=== PATIENT | female | born 1960 | race Caucasian/White ===

== ENCOUNTER 2024-10-16 20:20 | Emergency (ER) | payer OTHER, SELFPAY ==
[2024-10-16 20:27] VITALS: BP 146/96; PULSE 76; RESP 18; TEMP 36.7; O2SAT 99; BMI 36.3
--- NOTE | 2024-10-16 20:49 | ED_ITS ---
HPI - General Adult General Chief complaint: Fall/Minor Trauma Stated complaint: fell and cut face, hurt right arm Time Seen by Provider: 10/16/24 20:47 History of Present Illness HPI narrative: 64-year-old female with a past medical history hyperlipidemia, elevated BMI, abnormal Pap smear, presenting to the ER today for injuries after mechanical trip and fall. Today she was going upper concrete in her driveway. She was carrying some groceries in the grocery bag ripped and then she tripped on something and fell forward. when she tripped and hit her face on the corner and on some gravel next to her driveway and also injured her right arm. She did not lose consciousness. She did not injure her teeth her mouth. She does have scrapes and abrasions on her left face. However her main site of pain is significant discomfort in her right elbow that hurts whenever she tries to flex or straighten it. She does not have any neck pain. No upper or lower back pain. No chest pain or trouble breathing. No hip pain or pelvic pain. She did scrape both her knees but she would not have come to the ER for those scrapes. She does not have a headache. No blurry vision. No nausea or vomiting. She knows that she has scraped her left cheek and broke her glasses when she fell. No injuries to her eyes. She is unsure of her last tetanus (state database and records from [facility] care link show that it has been since 2010 since her last update. Related Data Home Medications ?Medication ?Instructions ?Recorded ?Confirmed No Known Home Medications 10/16/24 10/16/24 Allergies Allergy/AdvReac Type Severity Reaction Status Date / Time erythromycin base Allergy Mild Hives Verified 10/16/24 20:29 [facility] Social History Smoking Status: Never smoker How often do you have a drink containing alcohol: never AUDIT-C Alcohol total score: 0 Non-prescribed substance use: denies use Exam Narrative: Exam Narrative: Constitutional: Appears well-developed and well-nourished. Alert. Conversant. Non toxic. HENT: Head: No depressed skull fracture, Raccoon Eyes, Perez's sign, or hemotympanum. Face normal. TMs normal. Nose: Nose normal. Mouth/Throat: Oral mucosa is clear and moist. no trismus. Pharynx normal. Tonsils symmetric. No tonsillar enlargement, erythema, or exudate. Eyes: Conjunctivae normal. EOM normal. Pupils equal, round, and reactive to light. No scleral icterus. The patient has 3 vertical linear scratches on her left cheek over the lateral zygomatic arch. Two of them are very superficial, not binge threatening to the dermis. The other 1 barely penetrates through the dermis but does not create any gapping in the skin. I do not think these lacerations would benefit from primary closure with sutures. Dressings applied and antibiotic ointment applied. Neck: Normal range of motion. Neck supple. No tracheal deviation present. No posterior midline tenderness or step-off. Cardiovascular: Normal rate, regular rhythm. No gallop. No friction rub. No murmur heard. Symmetric radial artery pulses Pulmonary/Chest: Effort normal. No stridor. No respiratory distress. No wheezes. No rales. No rhonchi . No tenderness. Abdominal: Soft. Bowel sounds normal. No distension. No mass. No tenderness. No rebound. No guarding. Musculoskeletal: No T or L-spine tenderness. Pelvis stable. Hips nontender RUE: Clavicle, shoulder, proximal humerus, humeral shaft, distal humerus nontender. [place]: Normal inspection. No redness. No open wound. Limited range of motion by pain. Seems to be primarily tender over the proximal radius. No bony tenderness over the olecranon or medial epicondyle/lateral epicondyle. Distal forearm, wrist, hand, fingers, thumb are nontender. Limited pronation/supination of the forearm. Normal flexion extension of the wrist. Intact radial, median, ulnar nerve sensory function. Normal brisk distal cap refill. LUE: Normal range of motion. No tenderness. No deformity RLE: Normal range of motion. No edema. No tenderness. No deformity LLE: Normal range of motion. No edema. No tenderness. No deformit Neurological: Alert and oriented to person, place, and time. Normal strength. CN II-VII intact. No sensory deficit. GCS eye subscore is 4. GCS verbal subscore is 5. GCS motor subscore is 6. Normal coordination Skin: Skin is warm and dry. No rash noted. No pallor. Normal capillary refill. Psychiatric: Normal mood. Normal affect. Const: Vital Signs, click to edit/add: Vital Signs - 24 hr 10/16/24 20:27 10/16/24 21:32 10/16/24 22:34 Temperature 98.1 F 98.1 F Pulse Rate Pulse Rate [Right Pulse Oximeter] 76 Respiratory Rate 18 Blood Pressure Blood Pressure [Ri ght Upper Arm] 146/96 H Pulse Oximetry 99 96 Oxygen Delivery Me thod Room Air 10/16/24 23:25 Temperature Pulse Rate 63 Pulse Rate [Right Pulse Oximeter] Respiratory Rate 16 Blood Pressure 129/67 Blood Pressure [Ri ght Upper Arm] Pulse Oximetry 98 Oxygen Delivery Me thod Room Air Course Vital Signs Vital signs: Initial Vital Signs Temperature 98.1 F 10/16/24 20:27 Temperature Source Temporal Artery Scan 10/16/24 20:27 Pulse Rate 76 10/16/24 20:27 Respiratory Rate 18 10/16/24 20:27 Blood Pressure 146/96 H 10/16/24 20:27 Blood Pressure Mean 112 H 10/16/24 20:27 Blood Pressure Position Sitting 10/16/24 20:27 Pulse Oximetry 99 10/16/24 20:27 Oxygen Delivery Method Room Air 10/16/24 20:27 Vital Signs Temperature 98.1 F 10/16/24 20:27 Pulse Rate 76 10/16/24 20:27 Respiratory Rate 18 10/16/24 20:27 Blood Pressure 146/96 H 10/16/24 20:27 Pulse Oximetry 99 10/16/24 20:27 Oxygen Delivery Method Room Air 10/16/24 20:27 Temperature 98.1 F 10/16/24 21:32 Pulse Rate 63 10/16/24 23:25 Respiratory Rate 16 10/16/24 23:25 Blood Pressure 129/67 10/16/24 23:25 Pulse Oximetry 98 10/16/24 23:25 Oxygen Delivery Method Room Air 10/16/24 23:25 Medications Administered Medications: Discontinued Medications Generic Name Dose Route Start Last Admin Trade Name Freq PRN Reason Stop Dose Admin Hydrocodone Bitart/Acetaminophen 1 tab 10/16/24 20:59 10/16/24 21:32 Hydrocodone-Acetamin 5-325 Mg 1 Tab PO 10/16/24 21:00 1 tab ONCE ONE Administration Diphtheria/Tetanus/Acell Pertussis 0.5 ml 10/16/24 23:14 10/16/24 23:27 Tetanus/Diphth/Pertussis 0.5 Ml Syringe IM 10/16/24 23:15 0.5 ml .ONCE ONE Administration Ondansetron HCl 4 mg 10/16/24 20:59 10/16/24 21:32 Ondansetron Odt 4 Mg Tab PO 10/16/24 21:00 4 mg ONCE ONE Administration Medical Decision Making MDM Narrative Medical decision making narrative: Very pleasant 64-year-old female who is not on any anticoagulants presents to the ER today for evaluation of injuries after a ground level fall. Although she did scrape up her face when she fell and break her glasses and has superficial scrapes on both of her knees, she is primarily here because she has pain in her right upper extremity around the elbow. Clinical exam prompted x-rays of the elbow. X-rays are suspicious for a possible nondisplaced radial neck fracture. Discussed this with the patient. Reviewed x-rays with her. Will place the patient into a sling and recommended immobilization in the sling when up and around, ice, elevation. Tylenol or ibuprofen as needed. Instymeds prescription for Bre[place] that she can use if needed for breakthrough pain. Opiate precautions reviewed. Recommended outpatient follow-up in the [facility] within 5-7 days for re-evaluation. Discussed with the patient that typically this injury will heal non operatively but if it does become more angulated displaced, she may need orthopedic intervention. In terms of facial injuries she does have superficial scratches there but no injury deep enough that would benefit from primary closure with sutures. Wounds were cleaned here in the ER and antibiotic ointment and dressings were applied by nursing. Fortunately there is no sign of any eye involvement. No evidence for any underlying facial bone fracture. Tetanus is updated here in the ER tonight. I do not think she needs prophylactic oral antibiotics for these facial scratches. Discussed wound care and return precautions. With this ground level fall and facial injuries consider possible intracranial injury. The patient is 64 which would typically prompt necessity of head CT. However the patient says she really did not hit her head very hard, did not have any loss of consciousness, does not have a headache,. She would prefer not to have CT. Therefore will hold off for now. Precautions for return to the ER if she does develop any symptoms or reviewed with the patient and her . She does not have any cervical spine pain or tenderness. No focal neurologic de ficits. At this point I do think her C-spine can be cleared by nexus, even though she has a right elbow radial neck fracture. Imaging Data XR right elbow: Attestation: I have reviewed the pertinent imaging results. Radiologist's impression: FINDINGS: Bone: There is a subtle cortical irregularity in the radial neck, only seen on the frontal view. Joint: The elbow joint is unremarkable. No significant displacement of the anterior or posterior fat pads noted to suggest an effusion. Soft tissue: Unremarkable. No radiopaque foreign bodies are seen. IMPRESSION: 1. There is a subtle cortical irregularity in the radial neck, only seen on the frontal view. Correlation with physical exam for focal tenderness in this region is recommended to exclude an acute fracture. Discharge Plan Discharge Clinical Impression: Fracture of neck of right radius Patient Disposition: Home, Self-Care Condition: Stable Instructions: Elbow Fracture (DC) Additional Instructions: As we discussed, to care for the scrapes on her left cheek, wash them gently once per day and apply antibiotic ointment and keep them covered with a dressing until they are healed. Watch for signs of infection and come back to the ER right away if you have any concerns. For your right elbow, your x-rays are suspicious for a subtle fracture through the neck of your radius bone. This fracture will almost always heal without surgery. Please wear the sling when you are up and around during the day (but take the sling off at night or while you were resting) and avoid lifting or other strenuous activities with your right arm. To treat the pain you can use [id number] medications such as ibuprofen or acetaminophen. Use the prescription pain killer if needed, but be careful because [place] can cause dizziness, drowsiness, constipation, and can be addictive. Please follow-up with the [facility] within 5-7 days for a checkup. To schedule your orthopedic follow-up appointment, call [phone] Remember, if you develop any symptoms of headache, blurry vision, vomiting, confusion, come back to the ER right away for a head CT scan. Prescriptions: No Action No Known Home Medications Follow Up/Referrals: Provider,Not a Local [Primary Care Provider] - Stand Alone Forms: [employer] Info Instructions
--- NOTE | 2024-10-16 20:59 | CRLHL7_ITS ---
For Patients: As a result of the Cures Act, medical imaging exams and procedure reports are released immediately into your electronic medical record. You may view this report before your referring provider. If you have questions, please contact your health care provider. INDICATION: Right elbow pain, fall, injury TECHNIQUE: Elbow radiograph 3 views right COMPARISON: None FINDINGS: Bone: There is a subtle cortical irregularity in the radial neck, only seen on the frontal view. Joint: The elbow joint is unremarkable. No significant displacement of the anterior or posterior fat pads noted to suggest an effusion. Soft tissue: Unremarkable. No radiopaque foreign bodies are seen. IMPRESSION: 1. There is a subtle cortical irregularity in the radial neck, only seen on the frontal view. Correlation with physical exam for focal tenderness in this region is recommended to exclude an acute fracture. Dictated by Luc Wells MD @ 10/16/2024 9:49:00 PM Dictated by: Luc Wells MD @ 10/16/2024 21:52:12 (Electronically Signed)
[2024-10-16 21:32] VITALS: TEMP 36.7
[2024-10-16] MEDS: HYDROCODONE-ACETAMIN 5-325 MG 1 TAB PO (21:32)
[2024-10-16] MEDS: ONDANSETRON ODT 4 MG TAB PO (21:32)
--- OUTSIDE RECORDS SUMMARY | 2024-10-16 22:30 | XMS_ITS | Clinical Summary ---
Author Organization [facility] Address [address] [place] [id number] Care Team Providers Care Stakes Player Name Role Phone Clinic, [facility] Primary Care Provider + Allergies Active Allergy Reactions Criticality Noted Date Comments Erythromycin 01/23/2024 Medications No known medications Social History Tobacco Use Types Packs/Day Years Used Date Smoking Tobacco: Never Assessed Adolescent Education Answer Date Record ed Getting School Help Needed Not on file 01/23 Comments Unknown Sex and Gender Information Value Date Recorded Sex Assigned at Not on file Legal 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 Gender Identity Not on file Sexual Orientation Not on file Last Filed Vital Signs Vital Sign Reading Time Taken Comments Blood Pressure 142/76 01/24/2024 2:00 AM CDT Pulse 63 01/24/2024 2:00 AM CDT Temperature 36.8 C (98.3 F) 01/23/2024 11:23 PM CDT Respiratory Rate 13 01/24/2024 12:30 AM CDT Oxygen Saturation 97% 01/24/2024 2:00 AM CDT Inhaled Oxygen Concentration - - Weight 115 kg (253 lb 8.5 oz) 01/23/2024 11:24 P M CDT Height - - Body Mass Index - - Plan of Treatment Health Maintenance Due Date Last Done Comments ADVANCE CARE PLANNING 1960 ANNUAL REVIEW OF HM ORDERS 1959 CT COLONOGRAPHY 1959 DEXA 1959 FIT 1959 FLEX SIG 1959 sDNA (Cologuard) 1959 HIV SCREENING 1974 HEPATITIS C SCREENING 1977 LIPID 1999 Pneumococcal Vaccine: 50+ Years (1 of 1 - PCV) 2009 ZOSTER IMMUNIZATION (1 of 2) 2009 MAMMO SCREENING 12/26/2017 12/27/2015, 02/13/2005 DTAP/TDAP/TD IMMUNIZATION (2 - Td or Tdap) 01/16/2021 01/16/2011, 01/24/2005, 07/01/2001 COLONOSCOPY 09/18/2022 09/18/2012 COLORECTAL CANCER SCREENING 09/18/2022 COVID-19 Vaccine (2 - season) 2024 07/10/2023 INFLUENZA VACCINE (#1) 2024 FALL RISK ASSESSMENT 2024 PHQ-2 (once per calendar year) 2024 MEDICARE ANNUAL WELLNESS VISIT 07/10/2024 07/10/2023 DIABETES SCREENING 01/22/2027 01/23/2024, 10/21/2010 RSV VACCINE (1 - 1-dose 75+ series) 2034 PAP Discontinued 07/10/2023 HPV IMMUNIZATION Aged Out No longer e ligible based on patient's age to complete this topic MENINGITIS IMMUNIZATION Aged Out No l onger eligible based on patient's age to complete this topic Procedures Procedure Name Priority Date/Time Associated Diagnosis Comments COMPREHENSIVE METABOLIC PANEL STAT 01/23/2024 11:45 PM CDT C MAMMOGRAM, ONE BREAST Routine 02/13/2005 9:11 AM CDT from Last 3 Months or Most Recently Relevant to Health Maintenance Results * (ABNORMAL) Comprehensive metabolic panel (01/23/2024 11:45 PM CDT) Sodium 138 135 - 145 mmol/L 01/24/2024 12:55 AM CDT [facility] Potassium 3.9 3.4 - 5.3 mmol/L 01/24/2024 12:55 AM CDT [facility] Carbon Dioxide (CO2) 21(L) 22 - 29 mmol/L 01/24/2024 12:55 AM CDT [facility] Anion Gap 12 7 - 15 mmol/L 01/24/2024 12:55 AM CDT [facility] Urea Nitrogen 18.7 8.0 - 23.0 mg/dL 01/24/2024 12:55 AM CDT [facility] Creatinine 0.98(H) 0.51 - 0.95 mg/dL 01/24/2024 12:55 AM CDT [facility] GFR Estimate 64 >60 mL/min/1.7 3m2 01/24/2024 12:55 AM CDT [facility] Comment:eGFR calculated us2020 CKD-EPI equation. Calcium 9.2 8.8 - 10.4 mg/dL 01/24/2024 12:55 AM CDT [facility] Comment:Reference intervals for this test were updated on 01/14/2024 to reflect our healthy population more accurately. There may be differences in the flagging of prior results with similar values performed with this method. Those prior results can be interpreted in the context of the updated reference intervals. Chloride 105 98 - 107 mmol/L 01/24/2024 12:55 AM [facility]T [facility] Glucose 95 70 - 99 mg/dL 01/24/2024 12:55 AM CDT LABORATORY Alkaline Phosphatase 148 40 - 150 U/L 01/24/2024 12:55 AM CDT LABORATORY AST 17 0 - 45 U/L 01/24/2024 12:55 AM CDT LABORATORY ALT 15 0 - 50 U/L 01/24/2024 12:55 AM CDT [facility] Protein Total 6.8 6.4 - 8.3 g/dL 01/24/2024 12:55 AM CDT LABOR[facility]ORY Albumin 4.0 3.5 - 5.2 g/dL 01/24/2024 12:55 AM CDT LABORATORY Bilirubin Total 0.6 <=1.2 mg/dL 01/24/2024 12:55 AM CDT LABOR[facility]ORY Blood VENOUS LINE / Unknown Venipuncture / Unknown 01/23/2024 11:45 PM CDT 01/23/2024 11:52 PM CDT us Claudette Julian DO LAB - BLOOD ORDERABLES Fin al Result LABORATORY [facility] [address] Lab (1st floor, no room number) [place] [address], [facility] * MAMMOGRAM, ONE BREAST (02/13/2005 9:11 AM CDT) Anatomical Region Laterality Modality Other 02/13/2005 9:11 AM CDT Impressions 02/15/2005 7:39 AM CDT DIAGNOSTIC LEFT MAMMOGRAM, AND LEFT BREAST ULTRASOUND Breast Symptoms: None. Previous Mammography: Comparison with [facility] 02/02/05 - 06/08/99. Breast Parenchyma: Fatty/mild densities. Findings: Mammogram: A 44-year-old female has an evolving small nodular density in the mid lateral left breast, as seen on the screening mammogram of 02/02/05. Today we obtained a repeat left CC and true lateral view, and a coned compression spot film in the CC orientation. The nodular density is redemonstrated. Ultrasound is then done. Ultrasound: We scanned the lateral left breast extensively and could not find a cyst or other small mass to correlate with the mammographic finding. This is likely a benign density. We have two choices; one is to obtain diagnostic six-month mammographic follow up, and the other is to obtain a stereotactic core needle biopsy. I would suggest proceeding to a tissue diagnosis at this time. IMAGING IMPRESSION: ACR BIRADS CATEGORY 4A, SUSPICIOUS ABNORMALITY. LOW SUSPICION OF MALIGNANCY. SUGGEST CORE BIOPSY. Carlos Arce MD SPECIAL IMAGING STUDIES Edited from Last 3 Months or Most Recently Relevant to Health Maintenance Insurance Sidelines Sidelines Care Teams Stakes Player Relationship Specialty Start Date End Date [facility] [address] [place] [id number] PCP - General 01/24/24
--- OUTSIDE RECORDS SUMMARY | 2024-10-16 22:30 | XMS_ITS | Clinical Summary ---
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 [facility] Allergies Active Allergy Reactions Criticality Noted Date Comments Erythromycin Hives,Rash High 08/11/2019 Medications No known medications Active Problems No known active problems Social History Tobacco Use Types Packs/Day Years Used Date Smoking Tobacco: Never Assessed Comments Unknown Sex and Gender Information Value Date Recorded Sex Assigned at Not on file Legal Sex Female 5:11 AM CDT Gender Identity Not on file Sexual Orientation Not on file Last Filed Vital Signs Vital Sign Reading Time Taken Comments Blood Pressure 113/65 08/11/2019 9:38 AM CHIEF EXECUTIVE Pulse 95 08/11/2019 9:38 AM CHIEF EXECUTIVE Temperature 36.6 C (97.8 F) 08/11/2019 8:50 AM CHIEF EXECUTIVE Respiratory Rate 16 08/11/2019 8:50 AM CHIEF EXECUTIVE Oxygen Saturation 97% 08/11/2019 8:50 AM CHIEF EXECUTIVE Inhaled Oxygen Concentration - - Weight - - Height - - Body Mass Index - - Plan of Treatment Health Maintenance Due Date Last Done Comments Cervical Cancer Screening Due 1959 Colon Cancer Screening Plan Due 1959 Hep C Screening (Preventive Services) 1959 Mammogram 1959 Adult Preventive Visit 1977 Cholesterol 2004 Pneumococcal Vaccine 50+ Yrs (1 of 1 - PCV) 2009 Zoster/Shingles Vaccine (1 o f 2) 2009 DTaP/Tdap/Td Vaccine (2 - Tdap) 01/16/2021 01/16/2011, 01/24/2005, 07/01/2001 COVID-19 Vaccine (2 - 2023-2 5 season) 2024 09/28/2020 Influenza Vaccine (#1) 2024 RSV Vaccine (1 - 1-dose 75+ series) 2034 HepA Vaccine Aged Out No longer eligi ble based on patient's age to complete this topic HepB Vaccine Aged Out No longer eligi ble based on patient's age to complete this topic Hib Vaccine Aged Out No longer eligi ble based on patient's age to complete this topic IPV (Polio) Vaccine Aged Out No longe r eligible based on patient's age to complete this topic MCV4 Vaccine Aged Out No longer eligi ble based on patient's age to complete this topic Meningococcal B Vaccine Aged Out No l onger eligible based on patient's age to complete this topic Insurance SELF MANAGED CARE Care Teams Cnc Milling Machinist Relationship Specialty Start Date End Date Unassigned, Provider [address] [place] [address] PCP - General 06/03/00
--- OUTSIDE RECORDS SUMMARY | 2024-10-16 22:30 | XMS_ITS | Clinical Summary ---
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 25 Tablet 2 01/28/2024 Active Active Problems Problem Noted Date Diagnosed Date Obesity, morbid 01/28/2024 ASCUS of cervix with negative high risk HPV 07/01 Overview (07/17/2023): 07/2019 ASCUS/HPV Negative. 07/2023 ASCUS/HPV negative Plan: Pap/HPV due 07/2024 Routine health maintenance 02/26/2014 Overview (02/26/2014): Last mammogram: 02/11 Family history of diabetes mellitus 02/23/2014 Hyperlipidemia 01/22/2013 Other and unspecified hyperlipidemia 01/16/2010 Immunizations Immunization Administration Dates Next Due COVID-19 VACCINE SPIKEVAX (M ODERNA 50MCG/0.5ML) 12YO+ PFS 07/10/2023 Td (Age >=7 Years) 01/24/2005,07/01/2001 Tdap 01/16/2011 Family History Medical History Relation Name Comments Cancer-pancreatic Brother Tl Diabetes Brother Tl HIV Brother Tl Heart attack Brother Tl x 6 Cancer Father bladder and varinder er Diabetes Father Heart Disease Father Cancer Mother uterine Diabetes Mother Hypertension Mother Cancer Sister 1 Kathy brain tumor & k idney tumor Diabetes Sister 1 Kathy Heart Disease Sister 1 Kathy Hypertension Sister 1 Kathy Pancreatitis Sister 1 Kathy Other Sister 2 Carissa cushashish diseas e Drug Abuse Son Meth - he's bee n inpatient and outpatient Cancer-breast No Family History Relation Name Status Comments Brother Tl Father Maternal Grandfather Maternal Grandmother Mother Alive Paternal Grandfather Paternal Grandmother Sister 1 Kathy (Age 58) 09/12 Sister 2 Carissa Alive Son Alive Social History Tobacco Use Types Packs/Day Years Used Date Smoking Tobacco: Never Smokeless Tobacco: Never Alcohol Use Standard Drinks/Week Comments No 0 (1 standard drink = 0.6 oz pur e alcohol) PHQ-2 Answer Date Recorded PHQ-2 TOTAL SCORE 1 07/10/2023 Social Connections Answer Date Recorded Do you often feel lonely or isolated from those around you? 0 07/10/2023 Financial Resource Strain Answer Date R ecorded Difficulty of Paying Living Expenses 3 07/10/2023 Difficulty of Paying Living Expenses Not on file 07/10/2023 Food Insecurity Answer Date Recorded Do you worry your food will run out before you are able to buy more? 1 07/10/2023 Transportation Needs Answer Date Record ed Does lack of transportation keep you from medica l appointments? 1 07/10/2023 Does lack of transportation keep you from work, meetings or getting things that you need? 1 07/10/2023 Housing Stability Answer Date Recorded What is your housing situation today? 1 07/10/2023 Utilities Answer Date Recorded Do you have trouble paying f or utilities (for example, heat, electricity, water, phone)? 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 on file Not on file Not on file Obstetrics History Para Term AB IAB SAB Ectopic Multiple Livin g Live Births 1 Date Outcome GA Total Labor Labor/2nd/3rd Weight Sex Type Anes PTL Varinder A1 A5 Name Clin 1984 Term 40w 0d 4.31 kg (9 lb 8 oz) M Vag-S pont N Living Last Filed Vital Signs Vital Sign Reading Time Taken Comments Blood Pressure 126/86 01/28/2024 1:44 PM CDT Pulse 68 01/28/2024 1:44 PM CDT Temperature 37.4 C (99.4 F) 11/15/2018 10:37 AM CDT Respiratory Rate 16 08/14/2019 9:44 AM ENDOSCOPIC TECHNICIAN Oxygen Saturation 97% 11/15/2018 10: 37 AM CDT Inhaled Oxygen Concentration - - Weight 113.8 kg (250 lb 12. 8 oz) 01/28/2024 1:44 PM CDT with shoes Height 168.3 cm (5' 6.25) 07/10/2023 3 :04 PM ENDOSCOPIC TECHNICIAN Body Mass Index 40.18 07/10/2023 3:04 PM ENDOSCOPIC TECHNICIAN Plan of Treatment Health Maintenance Due Date Last Done Comments HIV for age 15-65 1974 Hepatitis C screening for ag e 18-79 1977 Pneumococcal series for age 50+ (1 of 1 - PCV) 2009 Zoster (shingles) series for age 50+ (1 of 2) 2009 Mammogram for age 45-75 12/26/2016 12/27/19 16, 02/23/2014, 02/26/2012, Additional history exists RSV vaccine for adults or (1 - Risk 60-74 years 1-dose series) 2019 Tetanus booster 01/16/2021 01/16/2011, 12/30, 07/01/2001 Colonoscopy through age 75 09/18/202209/18 (Completed outside of [facility]), 09/18/2012 COVID-19 vaccine series (2023- season) 2024 07/10/2023, 03/23/2022, 06/18/2021, Additional history exists DEXA/DXA scan for age 65+ 2024 BMI (ht and wt on same day) for age 18+ 07/10/2024 07/10/2023, 07/14/2019, 07/05/2016 Pap test for age 21-65 07/10/2024 , 07/10/2023, 07/14/2019, Additional history exists Depression screening for age 12+ 07/11/2024 07/11/2023, 07/10/2023, 07/17/2019, Additional history exists Influenza Vaccine (Season Ended) 2025 Lipids for age 45-75 01/27/2029 01/28/2024, 07/10/2023, 07/14/2019, Additional history exists Tdap Completed 01/16/2011 Procedures Procedure Name Priority Date/Time Associated Diagnosis Comments LIPID PANEL W REFLEX MEASURED LDL Routine 01/28/2024 2:15 PM CDT Abnormal cholesterol test HPV HIGH RISK Routine 07/10/2023 3:30 PM ENDOSCOPIC TECHNICIAN Pap smear for cervical cancer screening XR MAMMO BILAT SCREEN FFDM (IA) Routine 12/27/2015 3:56 PM CDT Screening for breast cancer COLONOSCOPY SCREENING Routine 09/18/2012 12:00 AM CDT Screening for colon cancer from Last 3 Months or Most Recently Relevant to Health Maintenance Results * (ABNORMAL) LIPID PANEL W REFLEX MEASURED LDL (01/28/2024 2:15 PM CDT) CHOLESTEROL,TOTAL 250(H) 100 - 199 mg/dL 01/28/2024 10:02 PM CDT [facility] [email or web address] [facility] Comment: Cholesterol, Total Reference Ranges Desirable <200 mg/dL Borderline 200-239 mg/dL High >=240 mg/dL TRIGLYCERIDES 111 <150 mg/dL 01/28/2024 10:02 PM CDT [facility] HDL CHOLESTEROL 65 >40 mg/dL 10:02 PM CDT [facility] NON-HDL CHOLESTEROL 185(H) <145 mg/dl 01/28/2024 10:02 PM CDT [facility] CHOL/HDL RATIO 3.85 <4.50 01/28/2024 10:02 PM CDT [facility] LDL CHOLESTEROL 163(H) <=130 mg/dL 01/28/2024 10:02 PM CDT [facility] VLDL CHOLESTEROL 22 <=30 mg/dL 01/28/2024 10:02 PM CDT [facility] PROVIDER ORDERED STATUS FASTING 01/28/2024 10:02 PM CDT [facility] Blood BLOOD SPECIMEN / Unknown Venipuncture / Unknown 01/28/2024 2:15 PM CDT 01/28/2024 2:17 PM CDT Dieter FLOOD CHEMISTRY Final Resul t Performing Organization Address City/[facility]/ZIP Co de Phone Number [facility] [address] [place] [address], * HPV HIGH RISK (07/10/2023 3:30 PM ENDOSCOPIC TECHNICIAN) TYPE 16 Negative Negative 07/12/2023 5:34 PM ENDOSCOPIC TECHNICIAN [facility] TYPE 18 Negative Negative 07/12/2023 5:34 PM ENDOSCOPIC TECHNICIAN [facility] OTHER HIGH RISK TYPES Negative Negative 07/12/2023 5:34 PM ENDOSCOPIC TECHNICIAN [facility] Other (Cervical) Non-Blood / Unknown 07/10/2023 3:30 PM ENDOSCOPIC TECHNICIAN 07/11/2023 12:08 PM ENDOSCOPIC TECHNICIAN Narrative [facility] - 07/12/2023 5:34 PM ENDOSCOPIC TECHNICIAN HPV types 16, 18, 31, 33, 35, 39, 45, 51, 52, 56, 58, 59, 66 and 68 DNA were undetectable or below the pre-set threshold. Methodology: Berny Nithin 4800 HPV Test Dieter FLOOD MICROBIOLOGY Final Resul t Performing Organization Address City/[facility]/ZIP Co de Phone Number [facility] [address] [place] [address], * XR MAMMO BILAT SCREEN FFDM (12/27/2015 3:56 PM CDT) Anatomical Region Laterality Modality BREASTS, Breast Left, Breast Right Bilateral Mammography Impressions 12/27/2015 5:24 PM CDT There is no radiographic evidence for malignancy. Recommend annual mammograms. A lay language report of this examination will be provided to the patient. MAMMOGRAM ASSESSMENT: ACR 1 Negative Narrative 12/27/2015 5:24 PM CDT XR MAMMO BILAT SCREEN FFDM [G0202.0] CLINICAL HISTORY: This is an asymptomatic 55 y.o. patient. INDICATION FOR EXAM: Mammogram Screening. TECHNIQUE: CC & MLO views were obtained. This digital study was evaluated with the assistance of Computer-Aided Detection. COMPARISON FILM: Yes 02/23/14 02/26/12 FINDINGS: Mammographically, the breast tissue has scattered fibroglandular densities. There are no dominant masses, suspicious micro calcifications or areas of architectural distortion. Dieter FLOOD MAMMO Final Resul t * COLONOSCOPY SCREENING (09/18/2012 12:00 AM CDT) Narrative 09/18/2012 12:00 AM CDT Procedure Note Scanner - 09/18/2012 12:00 AM CDT Dieter FLOOD GI PROCEDURE ORD Final Resu lt from Last 3 Months or Most Recently Relevant to Health Maintenance Insurance [employer] [place] [id number] Care Teams Burning Plant Operator Relationship Specialty [place] [address] [place] [address] PCP - General 7/7/10
[2024-10-16 22:34] VITALS: O2SAT 96
[2024-10-16 23:25] VITALS: BP 129/67; PULSE 63; RESP 16; O2SAT 98
[2024-10-16] MEDS: TETANUS/DIPHTH/PERTUSSIS 0.5 ML SYRINGE IM (23:27)
== END 2024-10-16 23:39 | disposition home or self-care (01) ==
PROVIDERS: Emergency Provider Emergency Medicine
DX: S52.131A Displaced fracture of neck of right radius, initial encounter for closed fracture (principal); S00.81XA Abrasion of other part of head, initial encounter; S80.212A Abrasion, left knee, initial encounter; S80.211A Abrasion, right knee, initial encounter; W01.198A Fall on same level from slipping, tripping and stumbling with subsequent striking against other object, initial encounter; Y93.01 Activity, walking, marching and hiking; Y92.008 Other place in unspecified non-institutional (private) residence as the place of occurrence of the external cause; Z23 Encounter for immunization
CPT/HCPCS: 73080; 90471; 90715; 94761; 99283; 99284; A9270